=== PATIENT | male | born 1960 | race Two or more races ===

== ENCOUNTER 2023-10-03 07:43 | Emergency (ER) | payer MEDICAID, OTHER ==
[~2023-10-03] VITALS: Ht 162.6 cm; Wt 76.7 kg
[2023-10-03 07:51] VITALS: BP 162/99; TEMP 97.7
[2023-10-03] MEDS ORDERED: IBUP1TAB5 PO (08:30)
[2023-10-03] MEDS ORDERED: BENZ200C64 PO (08:30)
[2023-10-03] MEDS ORDERED: PROM1SOL4 PO (08:30)
[2023-10-03 08:34] VITALS: PULSE 85; RESP 18; O2SAT 98
[2023-10-03] MEDS: DexAMETHasone SOD PHOS 10MG/1ML VIAL INJ IM ONE (08:47)
== END 2023-10-03 08:52 | disposition home or self-care (01) ==
LOC: ER 07:43
DX: J02.9 Acute pharyngitis, unspecified (principal); I10 Essential (primary) hypertension; Z88.0 Allergy status to penicillin; Z79.899 Other long term (current) drug therapy
CPT/HCPCS: 96372; 99283; J1100

== ENCOUNTER 2023-12-07 08:46 | Emergency (ER) | payer OTHER ==
[~2023-12-07] VITALS: Ht 165.1 cm; Wt 76.9 kg
[~2023-12-07 08:46] MED LIST: ACET-1881 PO; BENZ200C64 PO; IBUP1TAB5 PO; PROM1SOL4 PO
[2023-12-07 09:42] VITALS: BP 139/82; PULSE 69; RESP 18; TEMP 98.5; O2SAT 95
[2023-12-07] MEDS ORDERED: LISI-706 PO (09:47)
== END 2023-12-07 09:55 | disposition home or self-care (01) ==
LOC: ER 08:46
DX: I10 Essential (primary) hypertension (principal); Z76.0 Encounter for issue of repeat prescription; Z88.0 Allergy status to penicillin; Z79.899 Other long term (current) drug therapy

== ENCOUNTER 2024-01-17 08:30 | Emergency (ER) | payer OTHER ==
[~2024-01-17] VITALS: Ht 165.1 cm; Wt 77.5 kg
[~2024-01-17 08:30] MED LIST changes: +LISI-706 PO
[2024-01-17 09:14] VITALS: BP 142/96; PULSE 85; RESP 18; TEMP 98.2; O2SAT 97
[2024-01-17] MEDS: FAMOTIDINE 20 MG TAB PO ONE (10:17)
[2024-01-17] MEDS: LIDOCAINE VISCOUS 2% 15ML UD MT ONE (10:17)
[2024-01-17] MEDS: MAALOX PLUS or MAALOX 30 ML PO ONE (10:17)
[2024-01-17] MEDS: DONNATAL 5ml ORAL Elix (BELLADONNA ALK-PHENOBARB) PO ONE (10:17)
[2024-01-17] MEDS ORDERED: PANT40T PO (10:31)
== END 2024-01-17 11:05 | disposition home or self-care (01) ==
LOC: ER 08:30
DX: R10.13 Epigastric pain (principal); Z88.0 Allergy status to penicillin; Z79.899 Other long term (current) drug therapy

== ENCOUNTER 2024-01-28 08:20 | Emergency (ER) | payer OTHER ==
[~2024-01-28] VITALS: Ht 165.1 cm; Wt 78.0 kg
[~2024-01-28 08:20] MED LIST changes: +PANT40T PO
[2024-01-28] MEDS ORDERED: LISI-706 PO (08:42)
[2024-01-28 08:44] VITALS: BP 131/72; PULSE 77; RESP 16; TEMP 97.6; O2SAT 96
== END 2024-01-28 09:03 | disposition home or self-care (01) ==
LOC: ER 08:20
DX: I10 Essential (primary) hypertension (principal); Z76.0 Encounter for issue of repeat prescription; Z79.899 Other long term (current) drug therapy; Z88.0 Allergy status to penicillin